=== PATIENT | male | born 1955 | race Caucasian/White ===

== ENCOUNTER 2016-08-17 19:50 | Emergency (ER) | payer OTHER ==
[~2016-08-17] VITALS: Ht 182.9 cm; Wt 99.0 kg
[2016-08-17 19:55] VITALS: BP 248/115; PULSE 84; RESP 16; TEMP 99; O2SAT 99
[2016-08-17] MEDS ORDERED: ASPI81CH CHEW (20:14)
[2016-08-17] MEDS ORDERED: METO25TA3 PO (20:14)
[2016-08-17] MEDS ORDERED: NOVO7030P2 SQ (20:14)
[2016-08-17] MEDS ORDERED: LISI-515 PO (20:14)
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
[2016-08-17] MEDS ORDERED: ACETAMINOPHEN/HYDROcodone 325 MG/5 MG TAB PO ONE (20:30)
[2016-08-17] MEDS ORDERED: HYDR-3533 PO (20:34)
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
--- NOTE | 2016-08-17 21:23 | RADRPT ---
EXAM DATE/TIME: 08/17/2016 20:36 [facility] COMPARISON: No previous studies available for comparison. INDICATIONS : Bilateral upper extremity pain as a result of bear hugging a pylon stabilizing a boat. MEDICAL HISTORY : None. SURGICAL HISTORY : None. ENCOUNTER: Initial ACUITY: 1 day PAIN SCORE: 10/10 LOCATION: Left humerus FINDINGS: Two view examination of the left humerus demonstrates no evidence of fracture or dislocation. Bony m ineralization is normal. The soft tissue structures are intact. CONCLUSION: No acute disease. Ole Muro MD on August 17, 2016 at 21:20 Board Certified Radiologist. This report was verified electronically.
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
== END 2016-08-17 22:45 | disposition home or self-care (01) ==
LOC: NEPE 19:50
DX: S46.392A Other injury of muscle, fascia and tendon of triceps, left arm, initial encounter (principal); S46.391A Other injury of muscle, fascia and tendon of triceps, right arm, initial encounter; R22.33 Localized swelling, mass and lump, upper limb, bilateral; I10 Essential (primary) hypertension; E11.9 Type 2 diabetes mellitus without complications; Z79.4 Long term (current) use of insulin; E78.00 Pure hypercholesterolemia, unspecified; X58.XXXA Exposure to other specified factors, initial encounter
CPT/HCPCS: 73060; 73080; 99283

== ENCOUNTER 2017-09-09 19:39 | Emergency (ER) | payer SELFPAY ==
[~2017-09-09] VITALS: Ht 182.9 cm; Wt 134.0 kg
[~2017-09-09 19:39] MED LIST: ASPI-516 CHEW; ATOR10TA15 PO; BLOO1EAC16; BLOOD GLUCOSE T1 TES; CLOTCRE TOPICAL; HYDR-3533 PO; HYDR2.5C TOPICAL; INSU-119; LANTUS2P SQ; LISI40TA PO; METO50TA PO; NOVO7030P2 SQ; NOVOLOGP2 SQ; [UNRECOGNIZED DRUG - CODE]
--- NOTE | 2017-09-09 22:10 | PD ---
HPI . Right upper quadrant pain Chief Complaint: Abdominal Pain Time Seen by Provider: 21:42 Travel History International Travel<30 days: No Contact w/Intl Traveler<30days: No Traveled to known affect area: No History of Present Illness HPI Patient is a 62-year-old male who is complaining of 10 days of right upper quadrant pain feels it is swelling he feels nauseous he denies having diarrhea or denies vomiting he has nausea. He has a history of pancreatitis over 20 years ago they never found out why he denies alcoholism he denies gallstones. He is taking Tylenol for the pain without relief of his symptoms he has not tried antacids he has no history of gastritis. He has history of insulin- dependent diabetic he takes 70 units of 70/30 twice a day he says A1c is 6.5 on last check, he complains of pain localized right upper quadrant with some mild radiation to the epigastrium ...but most of the pain is in the right upper quadrant, feels as if a swelling feeling burning feeling , not alleviated by Tylenol he has not seen another doctor for this PFSH Past Medical History Cardiovascular Problems: Yes (HTN) High Cholesterol: Yes Diabetes: Yes Patient Takes Glucophage: No Diminished Hearing: No Hypertension: Yes Past Surgical History Other Surgery: Yes (perirectal abcess) Social History Alcohol Use: No Tobacco Use: No Substance Use: No Allergies-Medications (Allergen,Severity, Reaction): Coded Allergies: No Known Allergies (Unverified Adverse Reaction, Unknown, 09/09/17) Reported Meds & Prescriptions Reported Meds & Active Scripts Active Zofran (Ondansetron HCl) 4 Mg Tab 4 Mg PO Q6HR PRN Pepcid (Famotidine) 20 Mg Tab 20 Mg PO BID Easy Touch Insulin Syring (Insulin Administration Supplie) 1 Mis Mis Units .XX TIDAC Novolog Inj (Insulin Aspart) 1,000 Unit/10 Ml Vial 22 Units SQ TIDAC Lantus Inj (Insulin Glargine) 1,000 Unit/10 Ml Vial 67 Units SQ HS Atorvastatin (Atorvastatin Calcium) 10 Mg Tab 10 Mg PO HS Take one tablet at nighttime for one week. Then two tablets at nighttime for one week. Then 4 tablets at night for future weeks. Lisinopril 40 Mg Tab 40 Mg PO DAILY Metoprolol Tartrate 50 Mg Tab 50 Mg PO DAILY Hydrocortisone Topical 2.5% Cream 1 Applic TOPICAL BID Novolin 70-30 Inj (Insulin Human Isoph/Insulin Regular) 1,000 Unit/10 Ml Vial 90 Units SQ AC BREAKFAST 30 Days Novolin 70-30 Inj (Insulin Human Isoph/Insulin Regular) 1,000 Unit/10 Ml Vial 45 Units SQ AC DINNER 30 Days Clotrimazole-Betamethasone Topical (Betamethasone/Clotrimazole) 1-0.05% Cream 1 Applic TOPICAL BID Reported Aspirin 81 Mg Chew 81 Mg CHEW DAILY Review of Systems Except as stated in HPI: all other systems reviewed are Neg Gastrointestinal: Positive: Nausea, Abdominal Pain Physical Exam Narrative GENERAL: no acute distress SKIN: Warm and dry. HEAD: Atraumatic. Normocephalic. EYES: Pupils equal and round. No scleral icterus. No injection or drainage. ENT: No nasal bleeding or discharge. Mucous membranes pink and moist. NECK: Trachea midline. No JVD. CARDIOVASCULAR: Regular rate and rhythm. RESPIRATORY: No accessory muscle use. Clear to auscultation. Breath sounds equal bilaterally. GASTROINTESTINAL: Abdomen tenderness to RUQ MUSCULOSKELETAL: Extremities without clubbing, cyanosis, or edema. No obvious deformities. NEUROLOGICAL: Awake and alert. No obvious cranial nerve deficits. Motor grossly within normal limits. Five out of 5 muscle strength in the arms and legs. Normal speech. PSYCHIATRIC: Appropriate mood and affect; insight and judgment normal. Data Data Orders Orders Famotidine Inj (Pepcid Inj) (09/09/17 22:15) Sodium Chlorid 0.9% 500 Ml Inj (Ns 500 M (09/09/17 22:15) Complete Blood Count With Diff (09/09/17 22:07) Comprehensive Metabolic Panel (09/09/17 22:07) Lipase (09/09/17 22:07) Us Abdomen Gallbladder (09/09/17 ) Ct Abd/Pel W/O Iv Contrast (09/10/17 ) Ed Discharge Order (09/10/17 01:25) Labs Laboratory Tests Test 09/09/17 22:10 White Blood Count 7.3 TH/MM3 Red Blood Count 5.28 MIL/MM3 Hemoglobin 14.2 GM/DL Hematocrit 43.0 % Mean Corpuscular Volume 81.4 FL Mean Corpuscular Hemoglobin 26.8 PG Mean Corpuscular Hemoglobin Concent 33.0 % Red Cell Distribution Width 14.4 % Platelet Count 250 TH/MM3 Mean Platelet Volume 9.7 FL Neutrophils (%) (Auto) 49.9 % Lymphocytes (%) (Auto) 35.3 % Monocytes (%) (Auto) 10.2 % Eosinophils (%) (Auto) 3.9 % Basophils (%) (Auto) 0.7 % Neutrophils # (Auto) 3.6 TH/MM3 Lymphocytes # (Auto) 2.6 TH/MM3 Monocytes # (Auto) 0.7 TH/MM3 Eosinophils # (Auto) 0.3 TH/MM3 Basophils # (Auto) 0.1 TH/MM3 CBC Comment DIFF FINAL Differential Comment Blood Urea Nitrogen 25 MG/DL Creatinine 1.21 MG/DL Random Glucose 50 MG/DL Total Protein 7.6 GM/DL Albumin 4.2 GM/DL Calcium Level 8.9 MG/DL Alkaline Phosphatase 79 U/L Aspartate Amino Transf (AST/SGOT) 50 U/L Alanine Aminotransferase (ALT/SGPT) 55 U/L Total Bilirubin 0.3 MG/DL Sodium Level 143 MEQ/L Potassium Level 3.9 MEQ/L Chloride Level 109 MEQ/L Carbon Dioxide Level 24.4 MEQ/L Anion Gap 10 MEQ/L Estimat Glomerular Filtration Rate 61 ML/MIN Lipase 131 U/L [facility] Medical Decision Making Medical Screen Exam Complete: Yes Emergency Medical Condition: Yes Differential Diagnosis renal colic vs cholecystitis vs gastritis vs SBO vs other Narrative Course US no GB disease ossible renal stone , CT no specific findings safe for discharge follow up [facility] Diagnosis Primary Impression: Gastritis Qualified Codes: K29.70 - Gastritis, unspecified, without bleeding Patient Instructions: Diet for Stomach Ulcers and Gastritis (ED), Gastritis (ED ), General Instructions Scripts Ondansetron (Zofran) 4 Mg Tab 4 MG PO Q6HR Y for NAUSEA OR VOMITING, #12 TAB 0 Refills Prov: Justin Lopez MD 09/10/17 Famotidine (Pepcid) 20 Mg Tab 20 MG PO BID, #20 TAB 0 Refills Prov: Justin Lopez MD 09/10/17 Disposition: 01 DISCHARGE HOME Condition: Good Justin Lopez MD Sep 09, 2017 22:10
[2017-09-09] MEDS ORDERED: FAMOTIDINE 20 MG/2 ML VIAL IV PUSH SCH (22:15)
[2017-09-09] MEDS ORDERED: SODIUM CHLORID 0.9% 500 ML INJ 500 ML IV ONE (22:15)
[2017-09-09 22:26] LABS: AUTOMATED NEUTROPHIL # 3.6 TH/MM3 (1.8-7.7); BASOPHIL # 0.1 TH/MM3 (0-0.2); BASOPHIL % 0.7 % (0.0-2.0); EOSINOPHIL # 0.3 TH/MM3 (0-0.4); EOSINOPHIL % 3.9 % (0.0-4.0); HEMOGLOBIN 14.2 GM/DL (13.0-17.0); LYMPH % 35.3 % (9.0-44.0); LYMPHOCYTE # 2.6 TH/MM3 (1.0-4.8); MEAN CELL VOLUME 81.4 FL (80.0-100.0); MEAN CORPUSCULAR HEMOGLOBIN 26.8 PG (27.0-34.0); MEAN PLATELET VOLUME 9.7 FL (7.0-11.0); MONO % 10.2 % (0.0-8.0); MONOCYTE # 0.7 TH/MM3 (0-0.9); NEUT % 49.9 % (16.0-70.0); PLATELET COUNT 250 TH/MM3 (150-450); RED BLOOD COUNT 5.28 MIL/MM3 (4.50-5.90); RED CELL DISTRIBUTION WIDTH 14.4 % (11.6-17.2); WHITE BLOOD COUNT 7.3 TH/MM3 (4.0-11.0)
[2017-09-09 22:42] LABS: ALBUMIN 4.2 GM/DL (3.4-5.0); AST (GOT) 50 U/L (15-37); BICARBONATE 24.4 MEQ/L (21.0-32.0); BLOOD UREA NITROGEN 25 MG/DL (7-18); CALCIUM 8.9 MG/DL (8.5-10.1); CHLORIDE 109 MEQ/L (98-107); CREATININE 1.21 MG/DL (0.60-1.30); GLOMERULAR FILTRATION RATE 61 ML/MIN (>89); GLUCOSE,RANDOM 50 MG/DL (74-106); SODIUM (NA) 143 MEQ/L (136-145)
[2017-09-09 22:44] LABS: ALT (GPT) 55 U/L (12-78)
[2017-09-09 22:45] LABS: ALKALINE PHOSPHATASE 79 U/L (45-117); TOTAL BILIRUBIN ADULT 0.3 MG/DL (0.2-1.0); TOTAL PROTEIN 7.6 GM/DL (6.4-8.2)
--- NOTE | 2017-09-09 23:42 | RADRPT ---
EXAM DATE: 09/09/2017 11:32 PM EDT AGE/SEX: 62 years / Male INDICATIONS: Right upper quadrant pain x 10 days with nausea. CLINICAL DATA: This is the patient's initial encounter. Patient reports that signs and/or symptoms h ave been present for 2 weeks and indicates a pain score of 5/10. MEDICAL/SURGICAL HISTORY: Hypercholesterolemia. Hypertension. Pancreatitis. None. COMPARISON: No prior exams available for comparison. MEASUREMENTS: Liver:__ 19.9 cm. Common Bile Duct:__ 5mm. FINDINGS: Liver: Increased echotexture without focal lesion or ductal dilation. Portal Vein: Hepatopedal flow seen in portal vein. Common Duct: No intraluminal mass or stone visualized. Gallbladder: Demonstrates no wall thickening or pericholecystic fluid. No stones visualized. Pancreas: The visualized portions are within normal limits Right Kidney: Small cyst upper pole right kidney. Small calculus lower pole right kidney likely ston es Other: None. CONCLUSION: 1. Fatty liver. 2. Small right renal calculus and cyst. Electronically signed by: David Cordero MD 09/09/2017 11:40 PM EDT
--- NOTE | 2017-09-10 00:35 | RADRPT ---
EXAM DATE: 09/10/2017 12:29 AM EDT AGE/SEX: 62 years / Male INDICATIONS: Right flank pain. CLINICAL DATA: This is the patient's initial encounter. Patient reports that signs and symptoms have been present for 1 day and indicates a pain score of 9/10. MEDICAL/SURGICAL HISTORY: Hypertension. Diabetes. Perirectal abscess. None. RADIATION DOSE: 27.76 CTDI (mGy) ; Patient body habitus COMPARISON: No prior exams available for comparison. TECHNIQUE: Multiple contiguous axial images were obtained through the abdomen. Images were obtained using multiple row detector helical technique. Using automated exposure control and adjustment of the mA and/or kV according to patient size, radiation dose was kept as low as reasonably achievable to o btain optimal diagnostic quality images. DICOM format image data is available electronically for rev iew and comparison. FINDINGS: Lower Lungs: The visualized lower lungs are clear. Liver: The liver has a homogeneous density without space-occupying lesion. There is no dilation of th e biliary tree. Spleen: Homogeneous density without enlargement. Pancreas: Unremarkable without mass or calcification. Kidneys: Normal in size and shape. No evidence of mass or hydronephrosis other than prominent cyst i n the left kidney. Adrenal Glands: Unremarkable. Aorta: The aorta and proximal iliac vessels are grossly unremarkable without aneurysmal dilation. Bowel/Mesentery: The bowel loops are grossly unremarkable. The cecum and sigmoid colon have a normal configuration. Abdominal Wall: Intact. Retroperitoneum: No evidence of adenopathy in the retrocrural, para-aortic, or deep pelvic regions. Bladder: Contours are smooth. Reproductive Organs: No abnormal masses or calcifications seen. Inguinal: The inguinal region is unremarkable without evidence of adenopathy. Bony Structures: Unremarkable. CONCLUSION: 1. Cysts in the left kidney. No evidence of renal obstruction, free fluid, or mass. Electronically signed by: David Cordero MD 09/10/2017 12:33 AM EDT
[2017-09-10] MEDS ORDERED: FAMO1TAB37 PO (00:59)
[2017-09-10] MEDS ORDERED: ZOFR4TAB PO (00:59)
== END 2017-09-10 01:49 | disposition home or self-care (01) ==
LOC: NED 19:39 → NEPE 09-10 01:49
DX: K29.70 Gastritis, unspecified, without bleeding (principal); E11.9 Type 2 diabetes mellitus without complications; I10 Essential (primary) hypertension; E78.00 Pure hypercholesterolemia, unspecified; Z79.4 Long term (current) use of insulin
CPT/HCPCS: 74176; 76705; 80053; 83690; 85025; 96361; 96374; 99285; J7040